=== PATIENT | female | born 1970 | race Caucasian/White ===

== ENCOUNTER → 2018-07-30 | Outpatient (CLI) | payer BC ==
[2018-07-30 07:42] LABS: Basophils % (A) 0 %; Eosinophils # (A) 0.2 k/uL (0-0.7); Eosinophils % (A) 3 %; HCT 29.6 % (34.0-46.0); HGB 9.1 gm/dL (11.4-16.0); Hypochromasia Marked; Lymphocytes % (A) 28 %; MCHC 30.7 g/dL (31.0-37.0); MCV 71.6 fL (80.0-100.0); Mean Platelet Volume 6.9; Microcytosis Moderate; Monocytes # (A) 0.3 k/uL (0-1.0); Monocytes % (A) 4 %; Neutrophils # (A) 4.5 k/uL (1.3-7.7); Neutrophils % (A) 64 %; Platelet Count 354 k/uL (150-450); RBC 4.13 m/uL (3.80-5.40); RDW 15.7 % (11.5-15.5); WBC 7.1 k/uL (3.8-10.6)
[2018-07-30 11:22] LABS: Potassium 4.4 mmol/L (3.5-5.5)
== END | disposition home or self-care (01) ==
LOC: LABWHC1 07:06
PROVIDERS: ATTEND Obstetrics & Gynecology Obstetrics
DX: Z01.812 Encounter for preprocedural laboratory examination (principal); N85.2 Hypertrophy of uterus; N92.0 Excessive and frequent menstruation with regular cycle
CPT/HCPCS: 36415; 80051; 82565; 82947; 84520; 85025; 87086

== ENCOUNTER 2018-08-06 05:43 | Day surgery (SDC) | payer BC ==
[2018-07-31 11:08] VITALS: BMI 41.8
--- NOTE | 2018-08-02 13:54 | P.HPOB ---
History of Present Illness H&P Date: 08/02/18 Chief Complaint: enlarged fibroid uterus, heavy menstrual bleeding This is a 47yo that presents for evaluation of enlarged fibroid uterus. she was seen by Dr. Baptiste and enlarged uterus was noted 16cm with largest fibroid measuring 7 cm. she is have heavy menses with clots and on lysteda for this. she notes her menses have lightened on this medication. she denies constipation, diarrhea, + urinary urgency. Review of Systems Constitutional: Reports fatigue, Denies chills, Denies fever Cardiovascular: Denies chest pain, Denies edema Respiratory: Denies cough, Denies dyspnea Gastrointestinal: Denies constipation, Denies diarrhea, Denies nausea, Denies vomiting Genitourinary: Reports menorrhagia, Reports urgency Neurological: Denies headaches Past Medical History Additional Past Medical History / Comment(s): SEASONAL ALLERGIES, HX OF LEFT HIP "LOCKING UP" History of Any Multi-Drug Resistant Organisms: None Reported Past Surgical History: Cholecystectomy Past Anesthesia/Blood Transfusion Reactions: No Reported Reaction Smoking Status: Never smoker - Past Family History Father Family Medical History: Cancer Additional Family Medical History / Comment(s): PROSTATE Medications and Allergies Home Medications Medication Instructions Recorded Confirmed Type Apri 1 tab PO DAILY 07/31/18 History Fluticasone Nasal [place] [Flonase 2 spr EA NOSTRIL DAILY 07/31/18 07/31/18 History Nasal [place]] Ibuprofen [Advil] 400 mg PO Q6HR PRN 07/31/18 07/31/18 History Phentermine HCl 37.5 mg PO DAILY 07/31/18 07/31/18 History Pseudoephedrine [Sudafed] 30 mg PO Q6H PRN 07/31/18 07/31/18 History Allergies Allergy/AdvReac Type Severity Reaction Status Date / Time sulfamethoxazole Allergy Rash/Hives Verified 07/31/18 11:02 [From Bactrim] trimethoprim [From Bactrim] Allergy Rash/Hives Verified 07/31/18 11:02 Exam Osteopathic Statement: *. No significant issues noted on an osteopathic structural exam other than those noted in the History and Physical/Consult. targeted PE done gen: well nourished well developed female lungs; CTA b/l heart: RRR ext: trace edema : uterus noted to be enlarged but mobile, below the umbilicus, irregular in shape due to the fibroids. Assessment and Plan (1) Fibroid uterus Status: Acute Code(s): D25.9 - LEIOMYOMA OF UTERUS, UNSPECIFIED SNOMED Code( s): 59317185 (2) Enlarged uterus Status: Acute Code(s): N85.2 - HYPERTROPHY OF UTERUS SNOMED Code(s): 626136031 (3) Menorrhagia Status: Acute Code(s): N92.0 - EXCESSIVE AND FREQUENT MENSTRUATION WITH REGULAR CYCLE SNOMED Code(s): 696979897 Plan: RAVH/DC possible open procedure to complete if necessary possible BSO. risks were reviewed wiht pt including but not limited to infection bleeding damage to bladder bowel ureteris or other pelvic structures. all questions answered and she wishes to proceed.
[~2018-08-06 05:43] MED LIST: ACETAMINOPHEN IV (For NPO) 100 ML IVPB ONE; ceFAZolin IN SWFI 2 GM/20 ML SYRINGE IVP ONE
[2018-08-06] MEDS ORDERED: SCOPOLAMINE 1.5MG/72HR PATCH TRANSDERM ONE (05:55)
[2018-08-06] MEDS ORDERED: ONDANSETRON 4 MG/2 ML VIAL IVP ONE (05:55)
[2018-08-06] MEDS ORDERED: DEXAMETHASONE SOD PHOSPHATE 10 MG/ML 1 ML VIAL IV ONE (05:55)
[2018-08-06] MEDS ORDERED: LIDOCAINE 1% 20 ML VIAL (10MG/ML) FOR IV START INTRADERMA PRN (05:55)
[2018-08-06] MEDS ORDERED: HYDROmorphone 1 MG/ML 1 ML SYRINGE IVP PRN (05:55)
[2018-08-06] MEDS ORDERED: LACTATED RINGERS 1,000 ML IV ONE ×2 (06:35→10:45)
[2018-08-06] MEDS: LACTATED RINGERS 1,000 ML IV SCH (06:36)
[2018-08-06] MEDS ORDERED: ROCURONIUM BROMIDE 10 MG/ML 10 ML VIAL IV ONE (07:30)
[2018-08-06] MEDS ORDERED: PROPOFOL 10 MG/ML 20 ML VIAL IV ONE (07:30)
[2018-08-06] MEDS ORDERED: GLYCOPYRROLATE 0.2 MG/ML 2 ML VIAL ONE (07:30)
[2018-08-06] MEDS ORDERED: LIDOCAINE 1% INJ 10MG/ML (20 ML MDV) ONE (07:30)
[2018-08-06] MEDS ORDERED: SUCCINYLCHOLINE CHLORIDE 100 MG/5 ML SYR IV ONE (07:30)
[2018-08-06] MEDS ORDERED: fentaNYL (PF) 50 MCG/ML 2 ML AMP ONE (07:30)
[2018-08-06] MEDS ORDERED: HYDROmorphone (PF) 1 MG/ML ONE (07:30)
[2018-08-06] MEDS ORDERED: KETOROLAC 30 MG/ML 1 ML VIAL ONE (07:30)
[2018-08-06] MEDS ORDERED: ePHEDrine SULFATE/0.9% NACL/PF 50 MG/5 ML SYRINGE IV ONE (07:30)
[2018-08-06] MEDS ORDERED: NEOSTIGMINE 1 MG/ML 10 ML VIAL ONE (07:30)
[2018-08-06] MEDS ORDERED: MIDAZOLAM 2 MG/2 ML VIAL ONE (07:30)
[2018-08-06] MEDS ORDERED: ONDANSETRON 4 MG/2 ML VIAL ONE (07:30)
[2018-08-06] MEDS ORDERED: SIMETHICONE 80 MG CHEWABLE PO PRN (07:39)
[2018-08-06] MEDS ORDERED: Acetaminophen-Codeine 300-30mg TAB PO PRN ×2 (07:39)
[2018-08-06] MEDS ORDERED: BUPIVACAINE (PF) 0.25% 30 ML VIAL SQ ONE ×3 (08:07→10:55)
[2018-08-06] MEDS ORDERED: IBUPROFEN IV 800 MG in SODIUM CHLORIDE 0.9% 250 ML IV ONE (11:10)
[2018-08-06] MEDS: FLUTICASONE 50MCG/SPRAY NASAL 16GM EA NOSTRIL SCH (11:41)
[2018-08-06] MEDS: SENNOSIDES-DOCUSATE SODIUM 1 EACH TAB PO SCH ×2 (11:42→21:44)
--- NOTE | 2018-08-06 13:29 | P.OP ---
Date of Procedure: 08/06/18 Preoperative Diagnosis: enlarged fibroid uterus, menorrhagia Postoperative Diagnosis: same Anesthesia: PAULA Surgeon: Marline Delarosa Rug Layer #1: Nicholas Baptiste Estimated Blood Loss (ml): 50 IV fluids (ml): 800 Urine output (ml): 200 Pathology: other (uterus) Condition: stable Disposition: PACU Indications for Procedure: enlarged fibroid uterus Operative Findings: grossly enlarged fibroid uterus, 770 gm after hysterectomy, right ovary noted to be normal but adherant to the uterine side wall, nml left ovary. Description of Procedure: Patient was seen in the preoperative area and informed consent was obtained. Risks were reviewed in detail including but not limited to infection, bleeding, damage to bladder, bowel, ureteric or other pelvic organ injury. Patient stated understanding and wished to proceed. Next para patient was taken operating suite where general anesthesia was obtained without difficulty by the anesthesia department. She was then prepped and draped in normal sterile fashion in the dorsal lithotomy position. A Feliciano catheter was placed under sterile technique. A weighted speculum was placed in the posterior vaginal vault the anterior lip of the cervix was visualized and the endocervical canal was then dilated V care uterine manipulator was then advanced into the endometrial cavity as a means to manipulate the uterus throughout the procedure the balloon was insufflated with air and the cervical cap was then placed snugly against the cervix and all instruments were then removed from the vaginal vault. Attention was then turned to the patient's abdomen where approximately 3 finger breaths above the umbilicus a small skin incision is made. Through this incision the Veress needle was placed once the Veress needle was deemed to be in the proper position with a drop in CO2 pressure with insufflation of CO2 gas CO2 insufflation was allowed to occur. Approximally 3 L of gas were used to obtain pneumoperitoneum. At this time the incision was elongated to 12 mm and a 12 mm trocar and sleeve is placed through the incision and toward the pneumoperitoneum. The above- noted findings are visualized. The additional ports that M placed at 10 cm lateral and 3 cm inferior midline port these are 8 mm ports and operative ports of the da Vnicent machine. In the left upper quadrant 12 mm trocar and sleeve is placed with direct visualization. At this time the da Vincent robot is docked in the usual fashion operative arms are placed. In the right operative arm the monopolar scissors was placed in the left operative arm the bipolar forceps was placed at this time attention was then turned to the patient's left uterine ovarian ligament which was visualized coagulated distally and proximal in divided this continued through the broad and toward the round which was coagulated distally, proximally and divided. The bladder flap was then created using sharp and blunt dissection. The right infundibulopelvic ligament was then visualized coagulated distally and proximally and divided. Hemostasis was appreciated. The broadly COAGULATED AND TRANSECTED THROUGH. THIS CONTINUED TO TOWARD THE ROUND WHICH IS COAGULATED DISTALLY AND PROXIMALLY AND DIVIDED. THE BLADDER FLAP WAS THEN CREATED FROM THE RIGHT USING SHARP AND BLUNT DISSECTION. At this time the descending branch of the uterine artery was visualized on the right coagulated distally and proximal and divided. This was then repeated in the opposite side. At this point the only remaining attachment was a vaginal tear therefore colpotomy incision was made. Given the size of the uterus uterus then transected and 2 proximal 5 pieces which were transected and delivered through the vagina separately. The vaginal cuff was inspected and hemostasis was appreciated. The vaginal cuff was then closed with figure-of- eight sutures of 0 Vicryl 4. Hemostasis was appreciated once again. The pelvis and copiously irrigated and all incisions were removed from the patient' s abdomen. Attention was turned to the patient's vaginal vault a Feliciano catheter was removed without difficulty and a cystoscopy was performed. Cystoscope was placed through the urethra toward the bladder, bladder bubble was noted, a 360 degree evaluation of the bladder was completed and no defects were noted. Both ureteral orifices were noted to be spilling clear yellow urine. The cystoscope was removed and the Feliciano catheter was replaced. Tensions enter the patient's abdomen where the skin incisions were closed with 4 -0 Vicryl in a subarticular fashion Steri-Strips and sterile dressings were applied as needed. All counts are correct 2 patient tolerated procedure well and was taken the recovery room awake and stable condition
[2018-08-06] MEDS: IBUPROFEN 600 MG TAB PO PRN (21:52)
[2018-08-06 22:07] VITALS: RESP 16
[2018-08-07] MEDS: LACTATED RINGERS 1,000 ML IV SCH (06:00)
[2018-08-07] MEDS: IBUPROFEN 600 MG TAB PO PRN (07:26)
--- NOTE | 2018-08-07 08:12 | P.DS ---
Providers Date of admission: 08/06/2018 Expected date of discharge: 08/07/18 Attending physician: Marline Delarosa Primary care physician: Uriel Cohen - Discharge Diagnosis(es) (1) Fibroid uterus Current Visit: No Status: Acute (2) Enlarged uterus Current Visit: No Status: Acute (3) Menorrhagia Current Visit: No Status: Acute (4) S/P hysterectomy with oophorectomy Current Visit: Yes Status: Acute Hospital Course: This is a very pleasant 47-year-old female that presented for robotic-assisted vaginal hysterectomy yesterday 08/06. Patient was taken to the operating room secondary to an enlarged fibroid uterus. Patient did well through surgery for further details on the surgery please see the operative report. On this postop day #1 she is ambulating and voiding without difficulty. She states her pain is well-controlled. She is tolerating a regular diet without nausea or vomiting. In wishes to be discharged home on this postop day #1. Patient Condition at Discharge: Good Plan - Discharge Summary Discharge Rx Participant: Yes New Discharge Prescriptions: No Action Pseudoephedrine [Sudafed] 30 mg PO Q6H PRN PRN Reason: Nasal Congestion Ibuprofen [Advil] 400 mg PO Q6HR PRN PRN Reason: Pain Fluticasone Nasal [place] [Flonase Nasal [place]] 2 spr EA NOSTRIL DAILY Phentermine HCl 37.5 mg PO DAILY Apri 1 tab PO DAILY Discharge Medication List Apri 1 tab PO DAILY 07/31/18 [History] Fluticasone Nasal [place] [Flonase Nasal [place]] 2 spr EA NOSTRIL DAILY 07/31/18 [ History] Ibuprofen [Advil] 400 mg PO Q6HR PRN 07/31/18 [History] Phentermine HCl 37.5 mg PO DAILY 07/31/18 [History] Pseudoephedrine [Sudafed] 30 mg PO Q6H PRN 07/31/18 [History] Follow up Appointment(s)/Referral(s): Marline Delarosa DO [Doctor of Osteopathic Medicine] - 2 Weeks Patient Instructions/Handouts: Laparoscopic Hysterectomy (DC), Laparoscopic Hysterectomy (GEN) Activity/Diet/Wound Care/Special Instructions: No tub baths or intercourse until 8 weeks postoperative
[2018-08-07 08:19] VITALS: BP 107/65; PULSE 81; TEMP 98
[2018-08-07] MEDS: FLUTICASONE 50MCG/SPRAY NASAL 16GM EA NOSTRIL SCH (08:28)
[2018-08-07] MEDS: SENNOSIDES-DOCUSATE SODIUM 1 EACH TAB PO SCH (08:28)
[2018-08-07 09:51] LABS: Basophils % (A) 0 %; Eosinophils % (A) 0 %; HGB 8.3 gm/dL (11.4-16.0); Hypochromasia Marked; Lymphocytes # (A) 2.8 k/uL (1.0-4.8); Lymphocytes % (A) 27 %; MCH 22.2 pg (25.0-35.0); MCHC 30.6 g/dL (31.0-37.0); MCV 72.3 fL (80.0-100.0); Mean Platelet Volume 6.6; Microcytosis Moderate; Monocytes # (A) 0.3 k/uL (0-1.0); Monocytes % (A) 3 %; Neutrophils # (A) 7.3 k/uL (1.3-7.7); Neutrophils % (A) 69 %; Platelet Count 319 k/uL (150-450); RBC 3.73 m/uL (3.80-5.40); RDW 15.7 % (11.5-15.5); WBC 10.5 k/uL (3.8-10.6)
== END 2018-08-07 10:51 ==
LOC: OR 05:43 → 6PED 10:50 → OR 08-07 10:51
PROVIDERS: ATTEND Obstetrics & Gynecology Obstetrics
DX: D25.9 Leiomyoma of uterus, unspecified (principal); N85.2 Hypertrophy of uterus; N92.0 Excessive and frequent menstruation with regular cycle; Z91.09 Other allergy status, other than to drugs and biological substances; K21.9 Gastro-esophageal reflux disease without esophagitis; F90.9 Attention-deficit hyperactivity disorder, unspecified type; Z79.1 Long term (current) use of non-steroidal anti-inflammatories (NSAID); Z79.899 Other long term (current) drug therapy; Z88.2 Allergy status to sulfonamides; Z88.8 Allergy status to other drugs, medicaments and biological substances
CPT/HCPCS: 58554; S2900; 81025; 85025; 86850; 86900; 86901; 88307

== ENCOUNTER → 2019-11-11 | Outpatient (CLI) | payer BC ==
--- NOTE | 2019-11-12 10:42 | MM ---
Reason for exam: screening (asymptomatic). History: Took hormonal contraceptives for 5 years beginning at age 19. Physical Findings: A clinical breast exam by your physician is recommended on an annual basis and results should be correlated with mammographic findings. MG 3D Screening Mammo W/Cad Bilateral CC and MLO view(s) were taken. There are scattered fibroglandular densities. There is no discrete abnormality. No significant changes when compared with prior studies. ASSESSMENT: Negative, BI-RAD 1 RECOMMENDATION: Routine screening mammogram of both breasts in 1 year.
== END | disposition home or self-care (01) ==
LOC: RADMAMWWP 14:51
PROVIDERS: ATTEND Family Medicine
DX: Z12.31 Encounter for screening mammogram for malignant neoplasm of breast (principal)
CPT/HCPCS: 77063; 77067

== ENCOUNTER 2021-01-05 20:49 | Emergency (ER) | payer BC ==
[2021-01-05 22:42] VITALS: TEMP 98.5
--- NOTE | 2021-01-05 22:47 | ED ---
General Adult HPI - General Source: patient Mode of arrival: ambulatory Limitations: no limitations <Oscar Matson - Last Filed: 01/05/21 22:46> <Ashley Wheat - Last Filed: 01/06/21 02:31> - General Chief complaint: Shortness of Breath Stated complaint: Covid+ - History of Present Illness Initial comments: 50-year-old female presents to the emergency department with a chief complaint of body aches. Patient reports she began having symptoms on 12/31/20. She is complaining of myalgias and generalized fatigue. Also reports no productive cough with occasional exertional dyspnea but denies any chest pain. She states that her arms and legs feel swollen. She has not been tested for Covid. (Oscar Matson) 50-year-old female presenting today for chief complaint of body aches, chills 2 weeks a 12/31/20 she lost taste and smell. Patient states the past 2 weeks she has had body aches chills and fatigue. She states she has a mild cough at times feels slightly short of breath and no significant dyspnea. Patient states she has no chest pain or chest with deep inspiration. She denies any hemoptysis leg swelling recently mobilization cancer she has history of DVT or pulmonary embolism. Denies exogenous hormone use. Patient denies unilateral leg swelling. .She states that all 4 extremities feel sleepy and achy, she states they "feel swollen" denies redness. Patient has no additional complaints. upon arrival she appears well nontoxic in no acute distress. (Ashley Wheat) - Related Data Home Medications Medication Instructions Recorded Confirmed Apri 1 tab PO DAILY 07/31/18 08/06/18 Fluticasone Nasal [place] [Flonase 2 spr EA NOSTRIL DAILY 07/31/18 08/06/18 Nasal [place]] Ibuprofen [Advil] 400 mg PO Q6HR PRN 07/31/18 08/06/18 Phentermine HCl 37.5 mg PO DAILY 07/31/18 08/06/18 Pseudoephedrine [Sudafed] 30 mg PO Q6H PRN 07/31/18 08/06/18 Allergies Allergy/AdvReac Type Severity Reaction Status Date / Time sulfamethoxazole Allergy Rash/Hives Verified 01/05/21 22:42 [From Bactrim] trimethoprim [From Bactrim] Allergy Rash/Hives Verified 01/05/21 22:42 Review of Systems ROS Other: All systems not noted in ROS Statement are negative. <Oscar Matson - Last Filed: 01/05/21 22:46> ROS Other: All systems not noted in ROS Statement are negative. <JarretAshley L - Last Filed: 01/06/21 02:31> ROS Statement: Those systems with pertinent positive or pertinent negative responses have been documented in the HPI. Past Medical History Past Medical History: No Reported History History of Any Multi-Drug Resistant Organisms: None Reported Past Surgical History: Cholecystectomy, Hysterectomy Past Psychological History: ADD/ADHD Smoking Status: Never smoker Past Alcohol Use History: Occasional Past Drug Use History: None Reported <Oscar Matson - Last Filed: 01/05/21 22:46> General Exam Limitations: no limitations <Oscar Matson - Last Filed: 01/05/21 22:46> <JarretAshley L - Last Filed: 01/06/21 02:31> - General Exam Comments Initial Comments: General: The patient is awake and alert, in no distress, and does not appear acutely ill. Eye: Pupils are equal, round and reactive to light, extra-ocular movements are intact. No nystagmus. There is normal conjunctiva bilaterally. No signs of icterus. Ears, nose, mouth and throat: There are moist mucous membranes and no oral lesions. Neck: The neck is supple, there is no tenderness or JVD. Cardiovascular: There is a regular rate and rhythm. No murmur, rub or gallop is appreciated. Respiratory: Lungs are clear to auscultation, respirations are non-labored, breath sounds are equal. No wheezes, stridor, rales, or rhonchi. Gastrointestinal: Soft, non-distended, non-tender abdomen without masses or organomegaly noted. There is no rebound or guarding present. Musculoskeletal: Normal ROM, no tenderness. Strength 5/5. Sensation intact. Pulses equal bilaterally 2+. Neurological: A&O x 3. CN II-XII intact, There are no obvious motor or sensory deficits. Coordination appears grossly intact. Speech is normal. Skin: Skin is warm and dry and no rashes or lesions are noted. No LE edema, no swelling noted of the extremities at all. no calf pain or tenderness. Psychiatric: Cooperative, appropriate mood & affect, normal judgment. (Ashley Wheat) Course Vital Signs 01/05/21 01/06/21 22:38 00:00 Temperature 98.5 F Pulse Rate 93 81 Respiratory 20 18 Rate Blood Pressure 145/87 147/84 O2 Sat by Pulse 98 99 Oximetry Medical Decision Making <Ashley Wheat - Last Filed: 01/06/21 02:31> - Medical Decision Making covid +. symptoms x greater than 10 days. 5 days of lost taste/smell. patient covid +. patient has no significnat dsypnea. appears well nontoxic and a this time i feel she is stable for discharge wtih pcp f/u. patient agreeable to this care plan and discharge. (Ashley Wheat) - Lab Data Lab Results 01/05/21 Range/Units 22:45 Coronavirus (PCR) Detected A (Not Detectd) Disposition <Oscar Matson - Last Filed: 01/05/21 22:46> Is patient prescribed a controlled substance at d/c from ED?: No Time of Disposition: 23:49 <Ashley Wheat - Last Filed: 01/06/21 02:31> Clinical Impression: COVID-19, Loss of taste, Loss of smell, Body aches Disposition: HOME SELF-CARE Condition: Good Instructions (If sedation given, give patient instructions): Coronavirus Disease 2019 (COVID-19) Additional Instructions: Please use medication as discussed. Please follow-up with family doctor in the next 2 days of symptoms have not improved. Please return to emergency room if the symptoms increase or worsen or for any other concerns. Referrals: William Cohen MD [Primary Care Provider] - 1-2 days
--- NOTE | 2021-01-05 23:16 | XR ---
EXAMINATION TYPE: XR chest 2V DATE OF EXAM: 01/05/2021 COMPARISON: NONE HISTORY: Body aches. Numbness. TECHNIQUE: 2 views FINDINGS: Heart and mediastinum are normal. Lungs are clear. Diaphragm is normal. Bony thorax appears normal. IMPRESSION: Normal chest.
[2021-01-06 00:07] VITALS: BP 147/84; PULSE 81; RESP 18
== END 2021-01-06 00:14 | disposition home or self-care (01) ==
LOC: EC 20:49
DX: U07.1 COVID-19 (principal); F90.9 Attention-deficit hyperactivity disorder, unspecified type; Z79.1 Long term (current) use of non-steroidal anti-inflammatories (NSAID)
CPT/HCPCS: 71046; 87635; 99285

== ENCOUNTER → 2022-11-01 | Outpatient (CLI) | payer BC ==
--- NOTE | 2022-11-01 08:18 | MM ---
Reason for Exam: Screening (asymptomatic). Last mammogram was performed 2 year(s) and 11 month(s) ago. Patient History: Menarche at age 11. First Full-Term at age 25. Right ovary removed at age 47. Hysterectomy at age 47. Patient has history of breast feeding. Hormonal Contraceptives for 5 years from age 19 until age 24. Risk Values: Cathy 5 year model risk: 1.3%. NCI Lifetime model risk: 10.5%. Prior Study Comparison: 11/11/2019 Bilateral Screening Mammogram, [facility]. Tissue Density: There are scattered fibroglandular densities. Findings: Analyzed By CAD. There is no suspicious group of microcalcifications or new suspicious mass in either breast. Overall Assessment: Negative, BI-RAD 1 Management: Screening Mammogram of both breasts in 1 year. A clinical breast exam by your physician is recommended on an annual basis and results should be correlated with mammographic findings. Electronically signed and approved by: Allan Mark D.O.
== END | disposition home or self-care (01) ==
LOC: RADMAMWWP 07:15
PROVIDERS: ATTEND Family Medicine
DX: Z12.31 Encounter for screening mammogram for malignant neoplasm of breast (principal)
CPT/HCPCS: 77063; 77067

== ENCOUNTER → 2023-11-28 | Outpatient (CLI) | payer BC ==
[2023-11-28 09:45] VITALS: BP 136/86; PULSE 83; RESP 16; TEMP 97.7
--- NOTE | 2023-11-28 12:06 | P.PAINPG ---
PQRS Measure Charge Sheet Comment: HISTORY OF PRESENT ILLNESS: A 53 yr old female as a referral from [facility] presents today w severe and chronic LBP x 1 yr secondary to DDD, spondylosis and facet arthropathy without myelopathy for evaluation. Pt states pain level is provoked at 6 /10 in intensity, constant, localized in the lumbar spine, predominantly axial, sharp in character w occasional shooting pain towards the back of the LLE. Pain is provoked by lifting. Pain is alleviated by Pt x 12 wks which ended in Sep 2023, chiropractic treatments weekly x 4 wks in Jul 2023, alternating heat & ice, medications (Advil), BioFreeze topical, repositioning and rest. Oswestry axial pain score at 24. PMH: OA, ADD/ ADHD, Hx of L Femur Osteoid Osteoma PSH: Cholecystectomy, Hysterectomy SH: Never smoker, Occasional ETOH use, No illicit drug use FH: Noncontributory All: See list Meds: See list REVIEW OF ORGAN SYSTEMS: CONSTITUTIONAL: No fevers or chills. No recent weight loss. NEUROLOGICAL: + numbness and tingling along the distal extremities. No seizure disorders or headaches. MUSCULOSKELETAL: + pain PSYCHIATRIC: Denies current depression or suicidal thoughts. Physical Examinations : Constitutional : Cooperative , not in acute distress . Neurologic : Cranial nerve II to XII intact. No focal neurological deficits. Psychiatric : alert & oriented x 3. Matching mood & appropriate affect. Judgment & insight intact. Musculoskeletal : Cervical Spine Motor strength in the deltoid and biceps: Normal right side. Normal Left side Motor strength biceps and the wrist extensors: Normal right side . Normal left side Motor strength in the triceps muscle: Normal right side. Normal left side Deep tendon reflexes: Normal at the biceps. Normal at Brachioradialis. Normal at triceps Vertebral body tenderness to deep palpation over Cervical facet loading test: positive bilaterally Spurling test: positive bilaterally Neck distraction test: positive bilaterally Alex sign: positive bilaterally Lumbar spine Motor strength lower extremities ,thigh and legs 5/5 Right side , 5/5 Left side Deep tendon reflexes : Normal Knee Jerk. Normal Ankle Jerk Vertebral body tenderness over L2 [place] Test positive L2-L3 BL Lumbar facet Loading Test: positive Right / positive Left Range of motion of the lumbar spine Flexion 30 degrees, extension 10 degrees Straight Leg Raise test: Left/ Right positive at degree Johanna test: positive right / positive left. Severe tenderness over the Sacroiliac joint on the Right / Left sides Gaenslen test: positive bilaterally Seated flexion test: positive bilaterally. Sacral spine : Severe tenderness over the Sacroiliac joint: right side / left side Range of motion: Flexion of the lumbar spine <60 degrees Range of motion: Extension of the lumbar spine <20 degrees Gaenslen's Test positive Johanna test: positive right side / left side Thigh Thrust Test Sacral Thrust Test Imaging: Contrast of the lumbar spine from 09/02/2023 reviewed Assessment/ Plan : Lumbar DDD Recommendation of EVARISTO L2-L3 #1. May need a series of injections for optimal pain relief. Risks, benefits of procedure discussed and patient verbalized understanding. Admits to anti- coagulant use or medical history of diabetes. Protocol for discontinuation/ continuation of medications gisela procedure discussed. Minimal anesthesia provided, if clinically indicated, consisting of Versed and Fentanyl. All questions answered. I have spent greater than 30 minutes on patient care today. Dr Leigh was available by phone for the evaluation of this patient. The time was used to review the medical records including relevant urine studies and Prescription history (MAPs), review of the available imaging, evaluation and examination of the patient, coordination of care with the medical staff and if applicable referring physicians, as well as creation of the medical record Home Medications: Ambulatory Orders Fluticasone Nasal [place] [Flonase Nasal [place]] 2 spr EA NOSTRIL DAILY 07/31/18 Ibuprofen [Advil] 400 mg PO Q6HR PRN 07/31/18 Phentermine HCl 37.5 mg PO DAILY 07/31/18 Alpha Lipoic Acid 600 mg PO 11/28/23 Loratadine [Claritin] 10 mg PO DAILY 11/28/23 Metoprolol Succinate [Metoprolol Succinate ER] 25 mg PO 11/28/23 Omeprazole 20 mg PO 11/28/23 Controlled Substance Measures - Controlled Substance Measures Is patient prescribed a controlled substance at discharge?: No
== END ==
LOC: PNWHC3 08:57
PROVIDERS: ATTEND Specialist
DX: M51.16 Intervertebral disc disorders with radiculopathy, lumbar region (principal); M47.26 Other spondylosis with radiculopathy, lumbar region; M19.90 Unspecified osteoarthritis, unspecified site; F98.8 Other specified behavioral and emotional disorders with onset usually occurring in childhood and adolescence; F90.9 Attention-deficit hyperactivity disorder, unspecified type; Z86.018 Personal history of other benign neoplasm; Z88.2 Allergy status to sulfonamides; Z88.1 Allergy status to other antibiotic agents
CPT/HCPCS: 99211

== ENCOUNTER → 2023-12-18 | Outpatient (CLI) | payer BC ==
--- NOTE | 2023-12-20 12:43 | MM ---
Reason for Exam: Screening (asymptomatic). Last mammogram was performed 1 year(s) and 2 month(s) ago. Patient History: Menarche at age 11. First Full-Term at age 25. Right ovary removed at age 47. Hysterectomy at age 47. Patient has history of breast feeding. Hormonal Contraceptives for 5 years from age 19 until age 24. Risk Values: Cathy 5 year model risk: 1.3%. NCI Lifetime model risk: 10.3%. Prior Study Comparison: 11/11/2019 Bilateral Screening Mammogram, [facility]. 11/01/2022 Bilateral MG 3D screening mammo w/cad, [facility]. Tissue Density: There are scattered areas of fibroglandular density. Findings: Analyzed By CAD. There is no suspicious group of microcalcifications or new suspicious mass. Overall Assessment: Negative, BI-RAD 1 Management: Screening Mammogram of both breasts in [address] [facility] will attempt to contact patient to return for supplemental views and ultrasound if indicated. Patient should continue monthly self-breast exams. A clinical breast exam by your physician is recommended on an annual basis. This exam should not preclude additional follow-up of suspicious palpable abnormalities. Note on Cathy scores and lifetime risk: 1. A Cathy score greater than 3% is considered moderate risk. If this is the case, consider specialist referral to assess eligibility for a risk reducing agent. 2. If overall lifetime risk for the development of breast cancer is 20% or higher, the patient may qualify for future screening with alternating mammogram and breast MRI. Electronically signed and approved by: Saroj Medel DO
== END | disposition home or self-care (01) ==
LOC: RADMAMWWP 12:04
PROVIDERS: ATTEND Family Medicine
DX: Z12.31 Encounter for screening mammogram for malignant neoplasm of breast (principal)
CPT/HCPCS: 77063; 77067